=== PATIENT | female | born 1980 | race Caucasian/White ===

== ENCOUNTER 2021-03-21 09:49 | Day surgery (SDC) | payer BC ==
--- NOTE | 2021-03-15 14:22 | HP ---
DATE OF SURGERY: 03/21/2021 HISTORY OF PRESENT ILLNESS: The patient presents with complaints of some upper abdominal pain. She feels crampy at times. States she has been feeling terrible lately. She is not sure of the trigger of this. She had HIDA scan reporting 26% ejection fraction. PAST MEDICAL HISTORY: Insomnia. PAST SURGICAL HISTORY: Uterine ablation. ALLERGIES: NKDA. MEDICATIONS: Trazodone, propranolol. FAMILY HISTORY: None reported. SOCIAL HISTORY: None reported. REVIEW OF SYSTEMS: CONSTITUTIONAL: Denies fever or chills. CHEST: Denies shortness of breath. CVS: Denies chest pain. ABDOMEN: Reports upper abdominal pain. INTEGUMENTARY: Negative. PHYSICAL EXAMINATION: GENERAL: No acute distress. CHEST: Nonlabored. No shortness of breath. CVS: Regular rate and rhythm. ABDOMEN: Soft, nontender. EXTREMITIES: No edema. NEUROLOGIC: Alert. PSYCHIATRIC: Appropriate. IMPRESSION: Biliary dyskinesia. PLAN: Laparoscopic cholecystectomy with Dr. Paul Matute. As dictated by Colleen Partida NP.
[~2021-03-21 09:49] MED LIST: DIPRIVAN 200 MG/20 ML IV ONE; Lactated Ringers 1,000 ML IV ONE; Lactated Ringers 1,000 ML IV SCH; MEFOXIN 2 GM PREMIX** 2 GM/50 ML ML IV ONE; SUBLIMAZE 250 MCG/5 ML ONE; Sensorcaine 0.25% 10 ML ONE; Versed 2 MG/2 ML Injection ONE
[2021-03-21] MEDS ORDERED: Zemuron 100 MG/10 ML ONE (13:08)
[2021-03-21] MEDS ORDERED: TORAdol 30 mg Injection ONE (13:55)
[2021-03-21] MEDS ORDERED: Zofran 4 MG/2 ML VIAL ONE (13:55)
[2021-03-21] MEDS ORDERED: BRIDION 200MG/2ML IV ONE (14:00)
[2021-03-21] MEDS ORDERED: SUBLIMAZE 100 MCG/2 ML ONE (14:22)
[2021-03-21] MEDS ORDERED: Hydromorphone 1 mg/ml Injection ONE (14:22)
[2021-03-21 15:03] VITALS: O2SAT 96
[2021-03-21 15:29] VITALS: PULSE 71
[2021-03-21 15:30] VITALS: BP 122/73
--- NOTE | 2021-03-21 15:30 | OP ---
SURGERY DATE/TIME: 03/21/2021 1311 PREOPERATIVE DIAGNOSIS: Dyskinesia. POSTOPERATIVE DIAGNOSIS: Dyskinesia. PROCEDURE: Laparoscopic cholecystectomy. SURGEON: Dr. Paul Matute. ANESTHESIA: General endotracheal tube. ESTIMATED BLOOD LOSS: None. COMPLICATIONS: None. CONDITION: Stable. INDICATIONS: A patient with upper abdominal discomfort, ultrasound negative, HIDA scan positive. Seen and examined. Procedure discussed in detail and wished to proceed. DESCRIPTION OF PROCEDURE AND FINDINGS: Taken to surgery. General anesthetic, routine prep and drape. Veress needle inserted. Opening pressure of 1, insufflating pressure 14. Good visualization. Gallbladder acutely inflamed. Cystic duct defined. Cystic artery defined. Both structures triply clipped and transected. Clips noted across and well approximated. Gallbladder rolled out of gallbladder fossa. The gallbladder delivered through the epigastric port. Hole closure device was used. The field was clean and dry. CO2 exsufflated. Skin closed with 4-0 Vicryl and Steri-Strips. The patient tolerated the procedure satisfactorily.
== END 2021-03-21 15:40 | disposition home or self-care (01) ==
LOC: SDC 09:49
PROVIDERS: ATTEND Surgery
DX: K82.8 Other specified diseases of gallbladder (principal); R10.10 Upper abdominal pain, unspecified; Z79.899 Other long term (current) drug therapy
CPT/HCPCS: 84703; J0694; J1170; J1885; J2250; J2405; J2704; J3010